=== PATIENT | male | born 1950 | race Caucasian/White ===

== ENCOUNTER 2018-11-28 14:23 | Observation (INO) | payer BC, MEDICARE ==
[2018-11-28] MEDS ORDERED: Nitroglycerin 2% Ointment 1 INCH/1 GM Packet ONE (14:44)
[2018-11-28 14:52] LABS: #Eosinphils 0.2 thou/uL (0.0-0.7); #Lymphocytes 1.2 thou/uL (1.20-3.40); #Monocytes 0.9 thou/uL (0.11-0.59); #Neutrophils 6.2 thou/uL (1.40-6.50); %Basophils 0.5 % (0.0-1.0); %Monocytes 10.5 % (0.0-10.0); Mean Corpuscular HGB CONC 34.6 g/dL (32.0-36.0); Mean Corpuscular Hemoglobin 32.1 pg (27.0-31.0); Mean Corpuscular Volume 92.9 fL (78.0-98.0); Mean Platelet Volume 7.5 fL (7.4-10.4); Platelet Count 234 thou/uL (130-400); RBC Distribution Width 11.7 % (11.5-14.5); Red Blood Cell (RBC) Count 4.69 mill/uL (4.70-6.10); White Blood Cell (WBC) Count 8.5 thou/uL (4.8-10.8)
--- NOTE | 2018-11-28 14:58 | RAD ---
Chest AP view INDICATION: Chest pain with headache COMPARISON: October 29, 2016 FINDINGS: Lungs:The lungs are clear Cardiac silhouette:The cardiomediastinal silhouette appears within normal limits. Pulmonary vasculature:Normal Pleural spaces:No pleural effusion or pneumothorax is demonstrated. Upper abdomen:No abnormality seen. Osseous structures: There is stable postoperative change involving the proximal left humerus. Additional findings:None. IMPRESSION: No acute cardiopulmonary abnormality.
--- NOTE | 2018-11-28 15:01 | CT ---
CT BRAIN WITHOUT CONTRAST: Date: 11/28/18 HISTORY: Headache. COMPARISON: 05/23/02. FINDINGS: No evidence of acute infarct, hemorrhage, midline shift, or abnormal extra-axial fluid collections ar e seen. The ventricular size is normal and the basilar cisterns are patent. The bony calvarium is int act. The visualized paranasal sinuses and mastoid air cells are well aerated. IMPRESSION: No CT evidence of acute intracranial process. POS: OFF
[2018-11-28 15:12] LABS: ALT (SGPT) 27 U/L (8-55); AST (SGOT) 29 U/L (5-34); Albumin 4.4 g/dL (3.4-4.8); Alkaline Phosphatase 86 U/L (40-150); Anion Gap 11 mmol/L (10-20); BUN (Urea Nitrogen) 20 mg/dL (8.4-25.7); Bilirubin, Total 0.5 mg/dL (0.2-1.2); CK (CPK) 407 U/L (30-200); Calc. Creatinine Clearance 0 mL/min (70-130); Calcium 9.8 mg/dL (7.8-10.44); Carbon Dioxide 27 mmol/L (23-31); Chloride 107 mmol/L (98-107); Estimated GFR-MDRD 66; Globulin 2.6 g/dL (2.4-3.5); Glucose 90 mg/dL (80-115); Lipase 20 U/L (8-78); Potassium 4.3 mmol/L (3.5-5.1); Sodium 141 mmol/L (136-145)
[2018-11-28] MEDS ORDERED: Nitroglycerin 0.4 MG TAB (25 Tab Bottle) PO PRN (16:23)
[2018-11-28] MEDS ORDERED: Ondansetron ODT 4 MG TAB PO PRN (16:23)
[2018-11-28] MEDS ORDERED: Ondansetron PF 4 MG/2 ML Vial IVP PRN (16:23)
[2018-11-28] MEDS ORDERED: Acetaminophen 325 MG TAB PO PRN (16:23)
[2018-11-28 16:42] VITALS: BMI 27.8
[2018-11-28 19:20] LABS: Troponin I Less than 0.010 ng/mL (< 0.028)
[2018-11-28] MEDS: Famotidine 20 MG TAB PO SCH (20:29)
--- NOTE | 2018-11-28 21:44 | HP ---
PRIMARY CARE PHYSICIAN: Dr. Howie Holt. CHIEF COMPLAINT: Chest pain. HISTORY OF PRESENT ILLNESS: Mr. Julian is a 68-year-old man, with past medical history of hypertension, hyperlipidemia, and history of atrial fibrillation, presented to [facility] earlier today after he experienced left-sided chest pain and headache started earlier this morning when he was at work. He states that the symptoms lasted up until he had arrived to the ER and he was given nitroglycerin paste. The patient now denies any headache, blurred vision, dizziness, chest pain, palpitations, shortness of breath, abdominal pain, nausea, or vomiting. He is in normal sinus rhythm on the monitor. He states that he was in the hospital roughly 2 years ago back in 2017 for these similar symptoms and he underwent an echocardiogram and a nuclear stress test which were both normal, his echo demonstrated an EF of 50% to 55%. A nuclear stress test did however show some evidence of wall thinning with minimal scarring, which was similar to a study back in 2008, he was seen by Dr. Oakley at that time and was later cleared for discharge home, he was treated with aspirin, metoprolol, and atorvastatin at that time due to patient's low risk of stroke. He states that he was essentially asymptomatic and healthy otherwise since. REVIEW OF SYSTEMS: All other systems reviewed and found to be negative unless mentioned in HPI. PAST MEDICAL HISTORY: Hypertension; hyperlipidemia; past history of atrial fibrillation, currently in sinus rhythm. PAST SURGICAL HISTORY: Left shoulder surgery. PAST PSYCHIATRIC HISTORY: None. SOCIAL HISTORY: The patient reports drinking socially roughly 1-2 times a month and denies any tobacco or illicit drug use. ALLERGIES: NO KNOWN DRUG ALLERGIES. CURRENT HOME MEDICATIONS: 1. Aspirin 81 mg daily. 2. Metoprolol 25 mg oral daily. 3. Atorvastatin 20 mg oral daily. PHYSICAL EXAMINATION: VITAL SIGNS: BP 142/84, pulse 69, respiration 15, temp 97.6, O2 saturation 96% on room air. GENERAL: The patient is awake, alert, and oriented x3. He is lying comfortably in bed and in no acute distress. His is at bedside. HEENT: Atraumatic, normocephalic. Pupils are round and reactive to light. Extraocular muscles intact. Moist mucous membranes noted. NECK: Soft and supple. Trachea midline. CARDIOVASCULAR: Positive S1 and S2. Regular rate and rhythm. No murmur auscultated. RESPIRATORY: Clear to auscultation bilaterally. No wheezes, rales, rhonchi. ABDOMEN: Soft, nontender. Bowel sounds present. MUSCULOSKELETAL: Strength 5+ bilaterally upper and lower extremities. Moves all extremities equal. Pedal and radial pulses 2+ bilaterally and equal. No edema noted. NEUROLOGIC: Cranial nerves 2 through 12 grossly intact. No focal deficits noted speech intact and normal. Gait not assessed. SKIN: Warm, dry, and intact. No rashes. No ulceration noted. He does have a healed scar over the left shoulder. Nontender. PSYCHIATRIC: Good mood and affect. LABORATORY DATA: WBC 8.5, RBC 4.69, hemoglobin 15.0, platelet 234. Sodium 141, potassium 4.3, anion gap 11, BUN 20, creatinine 1.12, estimated GFR 66, glucose 90. Troponin less than 0.010. BNP 94.7, lipase 20. DIAGNOSTIC IMAGING: Portable chest x-ray showed no acute cardiopulmonary abnormality. CT brain without contrast showed no CT evidence of acute intracranial process. ASSESSMENT AND PLAN: 1. Chest pain, the patient's symptoms resolved after the use of nitroglycerin, so far his cardiac enzyme is negative; however, we will trend these out for a total of 3. His BNP is negative at 24.7. He had a negative cardiac workup roughly 2 years ago. However, we will order a nuclear cardiac stress test to rule out acute coronary syndrome at this time. His blood pressure and other vital signs remained stable and he is in normal sinus rhythm on the monitor. Pending his stress test results, we may also consult Cardiology as needed, which he has seen Dr. Oakley in the past. 2. Hypertension. Continue home regimen. 3. Hyperlipidemia. Continue home statin. 4. History of atrial fibrillation. He does have a history of atrial fibrillation roughly 2 years ago, who had followed with Dr. Oakley. He is currently in sinus rhythm and is asymptomatic at this time. We will monitor the patient on telemetry for any further arrhythmias. 5. Deep venous thrombosis and gastrointestinal prophylaxis. 6. Code status is full code. DISPOSITION: Pending further workup and clinical findings. Job ID: [id number]
[2018-11-28 21:54] LABS: Troponin I Less than 0.010 ng/mL (< 0.028)
[2018-11-29 06:58] LABS: Anion Gap 9 mmol/L (10-20); BUN (Urea Nitrogen) 15 mg/dL (8.4-25.7); Calc. Creatinine Clearance 89 mL/min (70-130); Calcium 9.3 mg/dL (7.8-10.44); Carbon Dioxide 28 mmol/L (23-31); Chloride 107 mmol/L (98-107); Estimated GFR-MDRD 71; Glucose 92 mg/dL (80-115); Potassium 4.1 mmol/L (3.5-5.1); Sodium 140 mmol/L (136-145)
[2018-11-29 08:15] VITALS: BP 153/87; TEMP 98
[2018-11-29] MEDS ORDERED: Atorvastatin Calcium 20 MG TAB PO SCH (09:00)
[2018-11-29] MEDS ORDERED: Enoxaparin Sodium 40 MG/0.4 ML SYRINGE SC SCH (09:00)
[2018-11-29] MEDS ORDERED: Aspirin Chewable 81 MG TAB PO SCH (09:00)
[2018-11-29] MEDS: Famotidine 20 MG TAB PO SCH (09:23)
[2018-11-29 12:04] LABS: #Eosinphils 0.2 thou/uL (0.0-0.7); #Lymphocytes 1.5 thou/uL (1.20-3.40); #Monocytes 0.8 thou/uL (0.11-0.59); %Basophils 0.7 % (0.0-1.0); %Eosinophils 2.2 % (0.0-10.0); %Lymphocytes 19.8 % (21.0-51.0); %Monocytes 11.1 % (0.0-10.0); %Neutrophils 66.3 % (42.0-75.0); Hemoglobin 14.9 g/dL (14.0-18.0); Mean Corpuscular HGB CONC 34.2 g/dL (32.0-36.0); Mean Corpuscular Hemoglobin 31.8 pg (27.0-31.0); Mean Platelet Volume 7.5 fL (7.4-10.4); Platelet Count 205 thou/uL (130-400); RBC Distribution Width 11.7 % (11.5-14.5); Red Blood Cell (RBC) Count 4.68 mill/uL (4.70-6.10); White Blood Cell (WBC) Count 7.5 thou/uL (4.8-10.8)
--- NOTE | 2018-11-29 12:06 | NM ---
EXAM: CARDIAC SPECT HISTORY: Chest pain, atrial fibrillation, hypertension and dyslipidemia TECHNIQUE: A myocardial perfusion scan was performed using the single isotope 1 day protocol with jelly hnetium 99m sestamibi. [10 mCi] was injected intravenously for the rest exam followed by 30 mCi for the stress study. Pharmacologic stress with adenosine was monitored and interpreted by Dr. Whittaker FINDINGS: Homogeneous tracer distribution is seen in the myocardial segments on stress and rest image s without fixed or reversible defects. Gated SPECT LVEF: 67% Wall motion exam: Normal IMPRESSION: Normal myocardial perfusion scan
[2018-11-29] MEDS ORDERED: ADENOSINE 60 MG/20 ML VIAL ONE (15:56)
--- NOTE | 2018-11-30 04:29 | DIS ---
DATE OF ADMISSION: 11/28/2018 DATE OF DISCHARGE: 11/29/2018 DISCHARGE DIAGNOSES: As of the followin. Chest pain. 2. Hypertension. 3. Hyperlipidemia. 4. History of atrial fibrillation. HOSPITAL COURSE: The patient is a very pleasant 68-year-old male, who initially presented to the hospital with chest pain. He had a stress test back 2 years ago in 2017, which was normal. He did undergo a cardiac stress test, which indicated an EF of 67% with normal perfusion scan. The patient feels well. He will be discharged home. He will follow up with his primary and Cardiology as needed. HOME MEDICATIONS: His home medications will be as of the followin. Aspirin 81 mg daily. 2. Metoprolol 50 mg daily. 3. Atorvastatin 20 mg daily. PHYSICAL EXAMINATION: VITAL SIGNS: Temperature of 98.0, 69, 15, 98% on room air, 126/62. GENERAL: He is awake, alert, and oriented x3. Does not appear in distress. CV: S1, S2 present. No murmurs, rubs, or gallops. ABDOMEN: Soft and nontender. Bowel sounds are present x2. Job ID: [id number]
--- NOTE | 2018-12-01 13:48 | EKG ---
Test Reason : Blood Pressure : / mmHG Vent. Rate : 072 BPM Atrial Rate : 072 BPM P-R Int : 172 ms QRS Dur : 090 ms QT Int : 406 ms P-R-T Axes : 067 001 047 degrees QTc Int : 444 ms Normal sinus rhythm Cannot rule out Inferior infarct , age undetermined Abnormal ECG Confirmed by SARIAH LLANOS, RAMON ([id number]), food expeditor BALBIR BROOKS ([id number]) on 12/01/2018 1:48:39 PM Referred By: Confirmed By:RAMON ROLLE MD
== END 2018-11-29 14:08 | disposition home or self-care (01) ==
LOC: ERS 14:23 → 2SW 15:17
PROVIDERS: ADMIT Internal Medicine; ATTEND Internal Medicine
DX: R07.9 Chest pain, unspecified (principal); I10 Essential (primary) hypertension; E78.5 Hyperlipidemia, unspecified; E78.00 Pure hypercholesterolemia, unspecified; Z79.82 Long term (current) use of aspirin; Z79.899 Other long term (current) drug therapy; Z91.041 Radiographic dye allergy status
CPT/HCPCS: 36415; 70450; 71045; 78452; 80048; 80053; 82550; 83690; 83880; 84484; 85025; 93005; 93017; 96360; A9500; G0378; J0153

== ENCOUNTER 2020-11-15 07:21 | Emergency (ER) | payer MEDICARE, OTHER ==
[2020-11-15] MEDS ORDERED: Dexamethasone 10 MG/ML VIAL ONE (07:53)
[2020-11-15] MEDS ORDERED: Aspirin Chewable 81 MG TAB ONE ×2 (07:53→08:18)
[2020-11-15 08:26] LABS: #Lymphocytes 1.4 thou/uL (1.20-3.40); #Monocytes 0.6 thou/uL (0.11-0.59); #Neutrophils 2.9 thou/uL (1.40-6.50); %Basophils 0.8 % (0.0-1.0); %Eosinophils 0.4 % (0.0-10.0); %Lymphocytes 28.6 % (21.0-51.0); %Monocytes 12.1 % (0.0-10.0); %Neutrophils 58.2 % (42.0-75.0); Hemoglobin 16.2 g/dL (14.0-18.0); Mean Corpuscular HGB CONC 34.9 g/dL (32.0-36.0); Mean Corpuscular Hemoglobin 32.2 pg (27.0-31.0); Mean Corpuscular Volume 92.4 fL (78.0-98.0); Mean Platelet Volume 7.9 fL (7.4-10.4); Platelet Count 164 thou/uL (130-400); RBC Distribution Width 11.8 % (11.5-14.5); Red Blood Cell (RBC) Count 5.02 mill/uL (4.70-6.10)
[2020-11-15 08:48] LABS: ALT (SGPT) 36 U/L (8-55); AST (SGOT) 42 U/L (5-34); Albumin 3.7 g/dL (3.4-4.8); Alkaline Phosphatase 80 U/L (40-110); Anion Gap 11 mmol/L (10-20); BUN (Urea Nitrogen) 15 mg/dL (8.4-25.7); Bilirubin, Total 0.5 mg/dL (0.2-1.2); CK (CPK) 121 U/L (30-200); Calc. Creatinine Clearance 0 mL/min (70-130); Carbon Dioxide 25 mmol/L (23-31); Chloride 103 mmol/L (98-107); Globulin 3.2 g/dL (2.4-3.5); Glucose 95 mg/dL (80-115); Lipase 50 U/L (8-78); Potassium 4.4 mmol/L (3.5-5.1); Protein, Total 6.9 g/dL (5.8-8.1); Sodium 135 mmol/L (136-145)
[2020-11-15] MEDS ORDERED: Iopamidol-370 76% 500 ML 1 ML ONE (09:55)
[2020-11-15] MEDS ORDERED: diphenhydrAMINE 50 MG/ML VIAL ONE (10:13)
[2020-11-15] MEDS ORDERED: Famotidine/PF 20 mg/2ml Vial ONE (10:13)
== END 2020-11-15 12:25 | disposition home or self-care (01) ==
LOC: ERS 07:21
DX: U07.1 COVID-19 (principal); J12.82 Pneumonia due to coronavirus disease 2019; I71.2 Thoracic aortic aneurysm, without rupture; E78.5 Hyperlipidemia, unspecified; E78.00 Pure hypercholesterolemia, unspecified; I10 Essential (primary) hypertension; Z79.82 Long term (current) use of aspirin; Z79.899 Other long term (current) drug therapy
CPT/HCPCS: 36415; 71045; 71275; 80053; 82550; 83690; 84484; 85025; 85379; 93005; 96374; 96375; J1100; J1200; Q9967; S0028

== ENCOUNTER 2021-11-30 13:02 | Outpatient (CLI) | payer MEDICARE, OTHER | END 2021-11-30 13:03 | disposition home or self-care (01) | LOC: BICCT 13:02 | PROVIDERS: ATTEND Thoracic Surgery (Cardiothoracic Vascular Surgery) | DX: I71.2 Thoracic aortic aneurysm, without rupture (principal) | CPT/HCPCS: 71250 ==

== ENCOUNTER 2022-02-16 11:04 | Emergency (ER) | payer MEDICARE, OTHER | END 2022-02-16 15:00 | disposition home or self-care (01) | LOC: ERS 11:04 | DX: J20.9 Acute bronchitis, unspecified (principal); I10 Essential (primary) hypertension; E78.1 Pure hyperglyceridemia; Z79.82 Long term (current) use of aspirin | CPT/HCPCS: 71045 ==

== ENCOUNTER 2022-12-21 13:58 | Outpatient (CLI) | payer MEDICARE, OTHER | END 2022-12-21 13:59 | disposition home or self-care (01) | LOC: BICCT 13:58 | PROVIDERS: ATTEND Thoracic Surgery (Cardiothoracic Vascular Surgery) | DX: I71.20 Thoracic aortic aneurysm, without rupture, unspecified (principal); I25.10 Atherosclerotic heart disease of native coronary artery without angina pectoris; I70.8 Atherosclerosis of other arteries; R59.0 Localized enlarged lymph nodes; R93.2 Abnormal findings on diagnostic imaging of liver and biliary tract | CPT/HCPCS: 71250 ==

== ENCOUNTER 2023-02-06 14:04 | Emergency (ER) | payer MEDICARE, OTHER | END 2023-02-06 15:46 | disposition home or self-care (01) | LOC: ERS 14:04 | DX: J18.9 Pneumonia, unspecified organism (principal); I10 Essential (primary) hypertension | CPT/HCPCS: 71045 ==

== ENCOUNTER 2024-03-04 10:34 | Outpatient (CLI) | payer MEDICARE, OTHER | END 2024-03-04 10:35 | disposition home or self-care (01) | LOC: BICCT 10:34 | PROVIDERS: ATTEND Thoracic Surgery (Cardiothoracic Vascular Surgery) | DX: I71.20 Thoracic aortic aneurysm, without rupture, unspecified (principal); R91.8 Other nonspecific abnormal finding of lung field; R59.0 Localized enlarged lymph nodes | CPT/HCPCS: 71250 ==

== ENCOUNTER 2024-11-01 08:07 | Emergency (ER) | payer MEDICARE ==
[2024-11-01 08:51] LABS: #Basophils 0.06 10x3/uL (0.0-0.2); #Eosinophils 0.11 10x3/uL (0.0-0.7); #Monocytes 0.87 10x3/uL (0.11-0.59); #Neutrophils 4.74 10x3/uL (1.40-6.50); %Basophils 0.8 % (0.0-1.0); %Eosinophils 1.5 % (0.0-10.0); %Lymphocytes 22.4 % (21.0-51.0); %Monocytes 11.6 % (0.0-10.0); %Neutrophils 63.3 % (42.0-75.0); Hematocrit 51.1 % (42.0-52.0); Hemoglobin 17.3 g/dL (14.0-18.0); Mean Corpuscular Hemoglobin 30.5 pg (27.0-31.0); Mean Corpuscular Volume 90.1 fL (78.0-98.0); Platelet Count 206 10x3/uL (130-400); Red Blood Cell (RBC) Count 5.67 mill/uL (4.70-6.10); White Blood Cell (WBC) Count 7.49 10x3/uL (4.8-10.8)
[2024-11-01] MEDS ORDERED: Aspirin 325 MG TAB ONE (08:54)
[2024-11-01] MEDS ORDERED: Famotidine/PF 20 mg/2ml Vial ONE (09:32)
[2024-11-01] MEDS ORDERED: diphenhydrAMINE 50 MG/ML VIAL ONE (09:32)
[2024-11-01 10:19] LABS: ALT (SGPT) 23 U/L (Less than 45); AST (SGOT) 26 U/L (11-34); Albumin 4.0 g/dL (3.1-4.5); Alkaline Phosphatase 85 U/L (40-110); Anion Gap 13 mmol/L (10-20); BUN (Urea Nitrogen) 18 mg/dL (8.4-25.7); Bilirubin, Total 0.4 mg/dL (0.3-1.2); Calc. Creatinine Clearance 0 mL/min (70-130); Calcium 8.7 mg/dL (7.8-10.44); Carbon Dioxide 21 mmol/L (23-31); Chloride 109 mmol/L (98-107); Globulin 2.7 g/dL (2.4-3.5); Glucose 119 mg/dL (83-110); Potassium 4.0 mmol/L (3.5-5.1); Sodium 139 mmol/L (136-145)
[2024-11-01 13:36] LABS: Bacteria/HPF None Seen HPF (None Seen); CAUTI Indications for Culture Dysuria,urgency,freq; Glucose, Urine (Dipstick) Normal (Negative); Leukocyte Negative Leu/uL (Negative); Protein, Urine (Dipstick) Negative (Neg-Trace); RBC/HPF 0-3 HPF (0-3); Specific Gravity, Urine 1.044 (1.002-1.036); WBC/HPF 0-3 HPF (0-3)
[2024-11-01 13:37] LABS: Urine Culture Reflex No No
== END 2024-11-01 13:32 | disposition home or self-care (01) ==
LOC: ERS 08:07
DX: R42 Dizziness and giddiness (principal); R59.0 Localized enlarged lymph nodes; I10 Essential (primary) hypertension; G61.0 Guillain-Barre syndrome; Z79.82 Long term (current) use of aspirin; Z79.899 Other long term (current) drug therapy
CPT/HCPCS: 70496; 70498; 80053; 81001; 83880; 84484; 85025; 93005; J1200; J1308; J2919; 96374; 96375

== ENCOUNTER 2024-11-08 08:45 | Outpatient (CLI) | payer MEDICARE, OTHER | END 2024-11-08 08:46 | disposition home or self-care (01) | LOC: PET 08:45 | PROVIDERS: ATTEND Family Medicine | DX: R93.89 Abnormal findings on diagnostic imaging of other specified body structures (principal) | CPT/HCPCS: 78815; A9552 ==

== ENCOUNTER 2024-12-02 12:17 | Day surgery (SDC) | payer MEDICARE, OTHER ==
[2024-12-02] MEDS ORDERED: Lidocaine 1% PF 5 ML VIAL ONE (12:41)
[2024-12-02] MEDS ORDERED: Sodium Bicarbonate 2.5 MEQ/5 ML SDV ONE (12:41)
== END 2024-12-02 14:20 | disposition home or self-care (01) ==
LOC: ULT 12:17
PROVIDERS: ATTEND Family Medicine
PROC: 07B23ZX Excision of Left Neck Lymphatic, Percutaneous Approach, Diagnostic (ICD-10-PCS; principal; 2024-12-02)
DX: C96.9 Malignant neoplasm of lymphoid, hematopoietic and related tissue, unspecified (principal); I10 Essential (primary) hypertension; E78.00 Pure hypercholesterolemia, unspecified; Z79.899 Other long term (current) drug therapy; Z79.82 Long term (current) use of aspirin; Z91.041 Radiographic dye allergy status
CPT/HCPCS: 38505; 76942; 88173; 88184; 88305; 88341; 88342

== ENCOUNTER 2024-12-08 09:27 | Emergency (ER) | payer MEDICARE, OTHER ==
[2024-12-08 10:36] LABS: #Basophils 0.03 10x3/uL (0.0-0.2); #Eosinophils 0.17 10x3/uL (0.0-0.7); #Monocytes 0.86 10x3/uL (0.11-0.59); #Neutrophils 5.65 10x3/uL (1.40-6.50); %Basophils 0.4 % (0.0-1.0); %Eosinophils 2.0 % (0.0-10.0); %Lymphocytes 19.4 % (21.0-51.0); %Monocytes 10.3 % (0.0-10.0); %Neutrophils 67.4 % (42.0-75.0); Hematocrit 47.0 % (42.0-52.0); Hemoglobin 15.7 g/dL (14.0-18.0); Mean Corpuscular Hemoglobin 30.3 pg (27.0-31.0); Mean Corpuscular Volume 90.6 fL (78.0-98.0); Platelet Count 218 10x3/uL (130-400); Red Blood Cell (RBC) Count 5.19 mill/uL (4.70-6.10); White Blood Cell (WBC) Count 8.37 10x3/uL (4.8-10.8)
[2024-12-08] MEDS ORDERED: Iopamidol-370 76% 500 ML MDV (1 ML CHARGE) ONE (10:39)
[2024-12-08 10:50] LABS: INR-International Normal Ratio 1.1; PTT 27.5 sec (22.9-36.1); Prothrombin Time 13.9 sec (12.0-14.7)
[2024-12-08 10:55] LABS: ALT (SGPT) 18 U/L (Less than 45); AST (SGOT) 26 U/L (11-34); Albumin 3.9 g/dL (3.1-4.5); Alkaline Phosphatase 88 U/L (40-110); Anion Gap 14 mmol/L (10-20); BUN (Urea Nitrogen) 12 mg/dL (8.4-25.7); Bilirubin, Total 0.3 mg/dL (0.3-1.2); Calc. Creatinine Clearance 0 mL/min (70-130); Calcium 8.9 mg/dL (7.8-10.44); Carbon Dioxide 19 mmol/L (23-31); Chloride 111 mmol/L (98-107); Globulin 3.0 g/dL (2.4-3.5); Glucose 100 mg/dL (83-110); Magnesium 1.9 mg/dL (1.6-2.6); Potassium 4.4 mmol/L (3.5-5.1); Sodium 140 mmol/L (136-145)
[2024-12-08] MEDS ORDERED: diphenhydrAMINE 50 MG/ML VIAL ONE (12:39)
[2024-12-08] MEDS ORDERED: Famotidine/PF 20 mg/2ml Vial ONE (12:39)
== END 2024-12-08 16:26 | disposition home or self-care (01) ==
LOC: ERS 09:27
DX: R42 Dizziness and giddiness (principal); I10 Essential (primary) hypertension; E78.1 Pure hyperglyceridemia; Z79.82 Long term (current) use of aspirin; Z79.899 Other long term (current) drug therapy; Z98.890 Other specified postprocedural states
CPT/HCPCS: 71275; 83735; 84484; 85610; 85730; 93005; 96374; 96375; 99284; J1200; J2919; Q9967; 80053; 84443; 85025

== ENCOUNTER 2024-12-12 14:21 | Outpatient (CLI) | payer MEDICARE, OTHER | END 2024-12-12 14:22 | disposition home or self-care (01) | LOC: MRI 14:21 | PROVIDERS: ATTEND Family Medicine | DX: C77.9 Secondary and unspecified malignant neoplasm of lymph node, unspecified (principal); R42 Dizziness and giddiness; R11.0 Nausea; R25.1 Tremor, unspecified; Z79.899 Other long term (current) drug therapy | CPT/HCPCS: 36415; 70553; 76376; 80053; 82607; 83036; 83735; 84443; 85025 ==

== ENCOUNTER 2025-02-17 12:53 | Emergency (ER) | payer MEDICARE, OTHER ==
[2025-02-17 14:49] LABS: #Basophils Less than 0.03 10x3/uL (0.0-0.2); #Eosinophils Less than 0.03 10x3/uL (0.0-0.7); #Monocytes 0.42 10x3/uL (0.11-0.59); #Neutrophils 1.65 10x3/uL (1.40-6.50); %Basophils 0.4 % (0.0-1.0); %Eosinophils 0.8 % (0.0-10.0); %Lymphocytes 18.5 % (21.0-51.0); %Monocytes 16.2 % (0.0-10.0); %Neutrophils 63.3 % (42.0-75.0); Hematocrit 40.6 % (42.0-52.0); Hemoglobin 13.6 g/dL (14.0-18.0); Mean Corpuscular Hemoglobin 30.4 pg (27.0-31.0); Mean Corpuscular Volume 90.8 fL (78.0-98.0); Platelet Count 112 10x3/uL (130-400); Red Blood Cell (RBC) Count 4.47 mill/uL (4.70-6.10); White Blood Cell (WBC) Count 2.60 10x3/uL (4.8-10.8)
[2025-02-17 15:19] LABS: ALT (SGPT) 35 U/L (Less than 45); AST (SGOT) 29 U/L (11-34); Albumin 3.4 g/dL (3.1-4.5); Alkaline Phosphatase 80 U/L (40-110); Anion Gap 17 mmol/L (10-20); BUN (Urea Nitrogen) 28 mg/dL (8.4-25.7); Bilirubin, Total 0.5 mg/dL (0.3-1.2); Calc. Creatinine Clearance 0 mL/min (70-130); Calcium 8.5 mg/dL (7.8-10.44); Carbon Dioxide 21 mmol/L (23-31); Chloride 103 mmol/L (98-107); Globulin 2.8 g/dL (2.4-3.5); Glucose 86 mg/dL (83-110); Potassium 4.7 mmol/L (3.5-5.1); Sodium 136 mmol/L (136-145)
== END 2025-02-17 17:25 | disposition home or self-care (01) ==
LOC: ERS 12:53
DX: R63.8 Other symptoms and signs concerning food and fluid intake (principal); I10 Essential (primary) hypertension; Z79.82 Long term (current) use of aspirin; Z79.899 Other long term (current) drug therapy; C76.0 Malignant neoplasm of head, face and neck
CPT/HCPCS: 80053; 83735; 85025; 99283